=== PATIENT | male | born 1985 | race Caucasian/White ===

== ENCOUNTER → 2020-01-05 14:26 | Outpatient (BNVA) | payer OTHER, SELFPAY | PROVIDERS: Visit Provider Internal Medicine | DX: Z76.89 Persons encountering health services in other specified circumstances (principal) ==

== ENCOUNTER → 2020-01-11 13:54 | Outpatient (BNVA) | payer OTHER, SELFPAY | PROVIDERS: Visit Provider Internal Medicine | DX: Z76.89 Persons encountering health services in other specified circumstances (principal) ==

== ENCOUNTER → 2020-01-18 13:41 | Outpatient (BNVA) | payer OTHER, SELFPAY | PROVIDERS: Visit Provider Internal Medicine | DX: Z76.89 Persons encountering health services in other specified circumstances (principal) ==

== ENCOUNTER → 2020-01-25 13:25 | Outpatient (BNVA) | payer OTHER, SELFPAY | PROVIDERS: Visit Provider Internal Medicine | DX: Z76.89 Persons encountering health services in other specified circumstances (principal) ==

== ENCOUNTER → 2020-02-01 14:11 | Outpatient (BNVA) | payer OTHER, SELFPAY | PROVIDERS: Visit Provider Internal Medicine | DX: Z76.89 Persons encountering health services in other specified circumstances (principal) ==

== ENCOUNTER → 2020-02-08 13:45 | Outpatient (BNVA) | payer OTHER, SELFPAY | PROVIDERS: Visit Provider Internal Medicine | DX: Z76.89 Persons encountering health services in other specified circumstances (principal) ==

== ENCOUNTER → 2020-02-15 13:42 | Outpatient (BNVA) | payer OTHER, SELFPAY | PROVIDERS: Visit Provider Internal Medicine | DX: Z76.89 Persons encountering health services in other specified circumstances (principal) ==

== ENCOUNTER → 2020-02-22 13:39 | Outpatient (BNVA) | payer OTHER, SELFPAY | PROVIDERS: Visit Provider Internal Medicine | DX: Z76.89 Persons encountering health services in other specified circumstances (principal) ==

== ENCOUNTER → 2020-03-07 13:44 | Outpatient (BNVA) | payer SELFPAY | PROVIDERS: Visit Provider Internal Medicine ==

== ENCOUNTER → 2020-03-21 13:41 | Outpatient (BNVA) | payer OTHER, SELFPAY | PROVIDERS: Visit Provider Internal Medicine ==

== ENCOUNTER → 2020-04-04 13:30 | Outpatient (BNVA) | payer OTHER, SELFPAY | PROVIDERS: Visit Provider Internal Medicine ==

== ENCOUNTER → 2020-04-18 13:28 | Outpatient (BNVA) | payer OTHER, SELFPAY | PROVIDERS: Visit Provider Internal Medicine ==

== ENCOUNTER → 2020-05-03 14:19 | Outpatient (BNVA) | payer OTHER, SELFPAY | PROVIDERS: Visit Provider Internal Medicine | DX: Z51.81 Encounter for therapeutic drug level monitoring (principal) | CPT/HCPCS: 80305 ==

== ENCOUNTER 2024-08-25 01:05 | Emergency (ER) | payer MEDICAID, SELFPAY ==
--- NOTE | 2024-08-25 | ECG_ITS ---
Test Reason : chest pain Blood Pressure : */* mmHG Vent. Rate : 72 BPM Atrial Rate : 72 BPM P-R Int : 168 ms QRS Dur : 90 ms QT Int : 426 ms P-R-T Axes : 33 5 27 degrees QTcB Int : 466 ms Normal sinus rhythm Normal ECG No previous ECGs available Referred By: Ciara Reyes Electronically Signed By: Surinder Chavez
--- NOTE | ~2024-08-25 | XR_ITS ---
CLINICAL HISTORY: chest pain 1 view chest x-ray Comparison: None provided Findings: Mild left retrocardiac atelectasis. No significant pleural effusion or pneumothorax. Heart size is normal. No acute fracture. IMPRESSION: Mild left retrocardiac atelectasis. This document has been electronically signed by: Frederic Jacob MD on 08/25/2024 02:00:25
--- NOTE | ~2024-08-25 | XR_ITS ---
EXAMINATION: XR CHEST 1 VIEW HISTORY: CP COMPARISON: There are no prior studies available for comparison. FINDINGS: A single PA view of the chest is submitted. The lungs are expanded and clear. There is no pleural effusion, pneumothorax, or pulmonary vascular congestion. The heart is normal in size. The bones are intact. XR/XR chest 1V IMPRESSION: Clear lungs. Electronically signed by: Toby Dyer MD 09/02/2024 09:35 AM EDT
[2024-08-25 01:33] VITALS: BP 155/108; PULSE 75; RESP 12; TEMP 36.8; O2SAT 96; BMI 28.1
--- NOTE | 2024-08-25 04:54 | ED_ITS ---
HPI - General Adult General Stated complaint: CP Time Seen by Provider: 08/25/24 01:11 Source: patient Mode of arrival: ambulatory Limitations: no limitations History of Present Illness ED Provider: Dr. Ciara Reyes HPI narrative: please see paper charts which were used during down time chief complaint, chest pain, feeling like he is withdrawing from alcohol. Last drink over 8 hours ago chest pain present for 2 weeks, sharp, substernal, no shortness of breath Related Data Previous Rx's ?Medication ?Instructions ?Recorded buprenorphine 8 mg-naloxone 2 mg 2 film sublingual SUNNY LY 21 days 05/03/20 sublingual film (Suboxone) #42 ea Allergies Allergy/AdvReac Type Severity Reaction Status Date / Time No Known Allergies Allergy Verified 02/01/20 14:12 Review of Systems Review of Systems: positive for chest pain, complaining of feeling like his withdrawing from alcohol PMFSH Past Medical History Medical History Opioid use disorder Alcohol abuse Physical Exam ED Const Other: Appearance: Alert. Oriented X3. No acute distress. seems uncomfortable, no tremor Eyes: Pupils equal, round and reactive to light. ENT: Pharynx normal. Neck: Normal inspection. Neck supple. No lymph nodes noted. No crepitus CVS: Normal heart rate and rhythm. Pulses normal. Normal S1 and S2 Respiratory: No respiratory distress. Breath sounds normal. No Wheezing. No rales Abdomen: Soft and nontender. No rigidity. No distention. Skin: Skin warm and dry. Normal skin color. Normal skin turgor. Extremities: No lower extremity edema. No Lacerations. No Rash Neuro: Oriented X 3. No motor deficit. No sensory deficit. Moving all extremities. No slurred speech. CN 2 through 12 grossly intact Psych: calm, cooperative, normal affect Course Course Course Narrative: complaining of chest pain for 2 weeks, chest x-ray and labs pending complaining of withdrawing from alcohol. Patient's vitals are normal, no tremor, Medical Decision Making Medical Decision Making MDM Narrative: see paper chart for labs overall, patient does feel better after Ativan. Patient states that he is on a waiting list in [place]. Patient states that he does not want to go to [facility] or any local detox facilities here. Patient states that he would prefer to be called back from [place]. Patient requesting a prescription for Librium Differential Diagnosis Differential Diagnoses: The differential diagnosis associated with the presentation includes ( alcohol withdrawal, opiate withdrawal, pleurisy, costochondritis) Admission/Observation Consideration of admission/observation: Escalation of care including admission/observation considered Scores Heart Score History: -0- slightly suspicious ECG: -0- normal Age: -0- < or = 45 Risk factory: -0- no risk factors known Troponin: -0- < or = normal limit Score: 0 Risk: 1.7% Critical Care Time Critical Care Time Critical Care Time: Yes Total Critical Care Time: 45 Attestation: Please follow-up with your primary care physician tomorrow. If you have any worsening or new symptoms, please return to the emergency room or call 911 Discharge Plan Discharge Clinical Impression: Atypical chest pain, Alcohol withdrawal Patient Disposition: Home, Self-Care Instructions: Abuse of Alcohol (DC), Chest Pain (ED) Additional Instructions: Please follow-up with your primary care physician tomorrow. If you have any worsening or new symptoms, please return to the emergency room or call 911 Prescriptions: No Action buprenorphine-naloxone [Suboxone] 8-2 mg film 2 film sublingual DAILY 21 Days Qty: 42 0RF Rx Instructions: place 1 strip/tab under (each) side of tongue Print Language: Ukrainian
[2024-08-25 04:59] VITALS: BP 149/99; PULSE 86; RESP 14; TEMP 36.8; O2SAT 98
[2024-08-25 05:19] VITALS: BP 149/99; PULSE 86; RESP 14; TEMP 36.8; O2SAT 98
[2024-08-25 05:50] LABS: Hematocrit 38.9 % (42.0-52.0); Hemoglobin 13.4 g/dl (14.0-18.0); Imm Gran Abs Auto 0.01 X10*3/uL (0.00-0.03); Imm Gran Pct Auto 0.2 % (0.0-0.4); Lymphocytes Absolute Auto 2.6 X10*3/uL (1.2-4.9); MANUAL DIFF FLAG SCAN; Mean Corpuscular HGB Conc 34.4 g/dl (31.0-36.0); Mean Corpuscular Hemoglobin 32.5 pg (27.0-33.0); Mean Corpuscular Volume 94.4 fL (80.0-98.0); NRBC Abs Auto 0.000 X10*3/uL (0.0-0.012); NRBC Pct Auto 0.0 /100WBC (0.0-0.2); Platelet Count 250 X10*3/uL (160-400); Red Blood Count 4.12 X10*6/uL (4.60-5.80); SCAN SMEAR FLAG 1; White Blood Count 4.1 X10*3/uL (4.8-10.8)
[2024-08-25 06:13] LABS: Alanine Aminotransferase 68 U/L (0-40); Albumin Level 4.3 g/dL (3.5-5.0); Alkaline Phosphatase 98 U/L (39-117); Anion Gap 15 (12-20); Aspartate Amino Transferase 73 U/L (5-37); Blood Urea Nitrogen 7 mg/dL (9-16); Calcium 8.6 mg/dL (8.4-10.2); Carbon Dioxide 25 mmol/L (22-29); Chloride 105 mmol/L (96-108); Creatinine Clr Calc Pharmacy 130.8; Estimated Glomerular Filt Rate > 60; Potassium 3.8 mmol/L (3.3-5.1); Sodium 141 mmol/L (135-145); Total Protein 7.1 g/dL (6.5-8.0)
[2024-08-25 06:15] LABS: Troponin-I High Sensitivity < 2.7 ng/L (<3.5-35.0)
[2024-08-25 06:43] LABS: Magnesium 2.1 mg/dL (1.6-2.6)
[2024-08-25 06:45] LABS: Cannabinoid Screen Urine Not Detected (Not Detect)
[2024-08-25 06:48] LABS: B Type Natriuretic Peptide 40 pg/mL (<100)
== END 2024-08-25 05:19 | disposition home or self-care (01) ==
PROVIDERS: Emergency Provider Emergency Medicine
DX: R07.9 Chest pain, unspecified (principal); F10.239 Alcohol dependence with withdrawal, unspecified
CPT/HCPCS: 36415; 71045; 80048; 80076; 80307; 83735; 83880; 84484; 85025; 93005; 99284; 99291

== ENCOUNTER → 2024-08-25 01:10 | Outpatient (BNV) | payer MEDICAID, SELFPAY | PROVIDERS: Emergency Provider Emergency Medicine; PCP Dentist General Practice; Visit Provider Radiology Diagnostic Radiology | DX: R07.9 Chest pain, unspecified (principal) | CPT/HCPCS: 71045 ==

== ENCOUNTER → 2024-08-25 01:10 | Outpatient (BNV) | payer MEDICAID, SELFPAY | PROVIDERS: Emergency Provider Emergency Medicine; PCP Dentist General Practice; Visit Provider Internal Medicine Cardiovascular Disease | DX: R07.2 Precordial pain (principal) | CPT/HCPCS: 93010 ==

== ENCOUNTER 2024-08-31 21:46 | Emergency (ER) | payer MEDICAID, SELFPAY ==
[2024-08-31 22:10] VITALS: BP 150/98; PULSE 98; RESP 16; TEMP 36.8; O2SAT 98; BMI 28.7
--- NOTE | 2024-08-31 22:20 | ECG_ITS ---
Test Reason : ETOH Blood Pressure : */* mmHG Vent. Rate : 87 BPM Atrial Rate : 87 BPM P-R Int : 168 ms QRS Dur : 98 ms QT Int : 388 ms P-R-T Axes : 47 19 47 degrees QTcB Int : 466 ms Normal sinus rhythm Normal ECG When compared with ECG of 25-Aug-2024 01:10, No significant change was found Referred By: Generic ED Physician Electronically Signed By: AISHA VILLARREAL
[2024-08-31 22:43] LABS: Hematocrit 34.2 % (42.0-52.0); Hemoglobin 12.3 g/dl (14.0-18.0); Mean Corpuscular HGB Conc 36.0 g/dl (31.0-36.0); Mean Corpuscular Hemoglobin 32.9 pg (27.0-33.0); Mean Corpuscular Volume 91.4 fL (80.0-98.0); NRBC Abs Auto 0.000 X10*3/uL (0.0-0.012); NRBC Pct Auto 0.0 /100WBC (0.0-0.2); Platelet Count 274 X10*3/uL (160-400); Red Blood Count 3.74 X10*6/uL (4.60-5.80); White Blood Count 6.0 X10*3/uL (4.8-10.8)
[2024-08-31 23:02] LABS: Salicylate < 5.0 mg/dL (15-30)
[2024-08-31 23:03] LABS: Alanine Aminotransferase 88 U/L (0-40); Albumin Level 4.3 g/dL (3.5-5.0); Alkaline Phosphatase 109 U/L (39-117); Anion Gap 12 (12-20); Aspartate Amino Transferase 169 U/L (5-37); Blood Urea Nitrogen 5 mg/dL (9-16); Calcium 8.5 mg/dL (8.4-10.2); Carbon Dioxide 22 mmol/L (22-29); Chloride 106 mmol/L (96-108); Creatinine Clr Calc Pharmacy 151.9; Estimated Glomerular Filt Rate > 60; Magnesium 2.0 mg/dL (1.6-2.6); Potassium 3.3 mmol/L (3.3-5.1); Sodium 137 mmol/L (135-145); Total Protein 7.2 g/dL (6.5-8.0)
[2024-08-31 23:37] LABS: Appearance Urine Clear; Glucose Urine UA Negative (Negative); PH 6.0 (5.0-9.0); Specific Gravity - Urine <= 1.005 (1.005-1.025)
[2024-08-31 23:45] LABS: Cannabinoid Screen Urine Not Detected (Not Detect)
--- NOTE | 2024-09-01 03:52 | ED.ALCOHOL ---
HPI - Alcohol General Chief Complaint: ETOH/Substance Use Stated Complaint: alcohol withdrawal Time Seen by Provider: 09/01/24 02:54 Source: patient Mode of arrival: ambulatory Limitations: no limitations History of Present Illness ED Provider: Dr. Ciara Reyes HPI narrative: Patient comes to the emergency room complaining of alcohol intoxication/withdrawal? Patient states that he drank earlier this evening. Patient states that the last time that I saw him here in the emergency room, he took his leave him and he stopped drinking for as long as the prescription lasted. Patient states that after that, he started drinking alcohol again. Patient states that he is not interested in detox. Patient states that he has tried 7 times and does not work. Earlier today in triage she said that he was interested in detox by the exception of [place]. However, patient states that he is not ready to go back to detox. Patient denies SI or HI , the patient denies polysubstance use Related Data Previous Rx's ?Medication ?Instructions ?Recorded buprenorphine 8 mg-naloxone 2 mg 2 film sublingual DAILY 21 days 05/03/20 sublingual film (Suboxone) #42 ea chlordiazepoxide HCl 25 mg capsule 25 mg PO QID PRN alcohol 08/25/24 withdrawal #16 caps chlordiazepoxide HCl 25 mg capsule 25 mg PO TID PRN alcohol 09/01/24 withdrawal #12 caps Allergies Allergy/AdvReac Type Severity Reaction Status Date / Time No Known Allergies Allergy Verified 08/31/24 22:17 Review of Systems Review of Systems: Constitutional : No Weight loss, No Fever, No Chills, No Night Sweats, No Fatigue, No Malaise ENT/Mouth : No Hearing loss, No Ear Pain, No Nasal Congestion, No Sinus Pain, No Hoarseness, No sore throat, No Rhinorrhea, No Swallowing Difficulty Eyes: No Eye Pain, No Swelling, No Redness, No Foreign Body, No Discharge, No Vision Changes Cardiovascular : No Chest Pain, No SOB, No Dyspnea on Exertion, No Orthopnea, No Edema, No Palpitations Respiratory : No Cough, No Sputum, No Wheezing, No Smoke Exposure, No Dyspnea Gastrointestinal : No Nausea, No Vomiting, No Diarrhea, No Constipation, No abdominal Pain, No Hematochezia, No Melena Genitourinary : no irregular bleeding, No Dysuria, No Urinary Frequency, No Hematuria, No Urinary Incontinence, No Urgency, No Flank Pain, No Urinary Flow Changes, No Hesitancy Musculoskeletal : No joint pain, No Myalgias, No Joint Swelling Skin : No Skin Lesions, No rash Neuro : No Weakness, No Numbness, No Paresthesias, No Loss of Consciousness, No Dizziness, No Headache Psych : No Anxiety/Panic, No Depression, No SI/HI/AH/VH, admits to alcohol abuse and dependence Heme/Lymph: No Bruising, No Bleeding,No Lymphadenopathy Endocrine : No Polyuria, No Polydipsia, No Temperature Intolerance [facility] Past Medical History Medical History Opioid use disorder Alcohol abuse Social History Social History Alcohol intake: current Alcohol intake frequency: 3 or more drinks per day Alcohol type: beer Substance Use Type: Former Substance User Advance Directives: No Advance Directives Information Provided: No Do you have a plan to hurt others: No Plan Physical Exam ED Vital Signs: Vital Signs - 24 hr 08/31/24 22:10 Temperature 98.3 F Pulse Rate 98 Respiratory Rate 16 Blood Pressure 150/98 H Pulse Oximetry 98 Oxygen Delivery Method Room Air BMI result Body Mass Index 28.7 Const Other: Appearance: Alert. Oriented X3. No acute distress. Eyes: Pupils equal, round and reactive to light. ENT: Pharynx normal. Neck: Normal inspection. Neck supple. No lymph nodes noted. No crepitus CVS: Normal heart rate and rhythm. Pulses normal. Normal S1 and S2 Respiratory: No respiratory distress. Breath sounds normal. No Wheezing. No rales Abdomen: Soft and nontender. No rigidity. No distention. Skin: Skin warm and dry. Normal skin color. Normal skin turgor. Extremities: No lower extremity edema. No Lacerations. No Rash Neuro: Oriented X 3. No motor deficit. No sensory deficit. Moving all extremities. No slurred speech. CN 2 through 12 grossly intact Psych: calm, cooperative, normal affect Course Course Course Narrative: Patient complaining of alcohol intoxication and feeling like he is withdrawing. Patient drank alcohol prior to arrival here in the emergency room. Patient states that Librium really help him to stop drinking. Medical Decision Making Medical Decision Making [facility] Narrative: My interpretation of labs: No acute abnormality in patient's hematology and chemistry, patient's LFTs elevated in an ETOH abuse pattern. Chronic, urinalysis negative for UTI, urine toxicology positive for buprenorphine, benzodiazepines and barbiturates I discussed with the patient that the last time that he was here, we did give him a script. However, we can not keep repeating this over and over again, giving him a script for a few days and then him going back to drinking and and then back in the hospital. Patient states that he has needs 1 more script to get his thoughts together and he will get himself to detox. Declined assistance with detox at this time. Patient denies SI or HI. Patient is alert and oriented x3, clinically sober, stable vitals Differential Diagnosis Differential Diagnoses: The differential diagnosis associated with the presentation includes (Alcohol intoxication, alcohol dependence) Admission/Observation Consideration of admission/observation: Escalation of care including admission/observation considered (Care team consult/motor coach operator/[facility] was offered. Patient declined) Lab Data MDM Lab Attestation statement: I reviewed the patient's lab results. 08/31/24 22:36 08/31/24 22:36 Labs: Lab Results 08/31/24 08/31/24 Range/Units 22:36 23:30 WBC 6.0 (4.8-10.8) X10*3/uL RBC 3.74 L (4.60-5.80) X10*6/uL Hgb 12.3 L (14.0-18.0) g/dl Hct 34.2 L (42.0-52.0) % MCV 91.4 (80.0-98.0) fL MCH 32.9 (27.0-33.0) pg MCHC 36.0 (31.0-36.0) g/dl RDW 13.4 (11.0-16.0) % Plt Count 274 (160-400) X10*3/uL MPV 9.9 (9.4-12.4) fL Absolute Nucleated RBC 0.000 (0.0-0.012) X10*3/uL Nucleated RBC % (auto) 0.0 (0.0-0.2) /100WBC Sodium 137 (135-145) mmol/L Potassium 3.3 (3.3-5.1) mmol/L Chloride 106 (96-108) mmol/L Carbon Dioxide 22 (22-29) mmol/L Anion Gap 12 (12-20) BUN 5 L (9-16) mg/dL Creatinine 0.80 (0.5-1.4) mg/dL Estim Creat Clear Calc 151.9 Estimated GFR > 60 Random Glucose 91 (60-115) mg/dL Calcium 8.5 (8.4-10.2) mg/dL Magnesium 2.0 (1.6-2.6) mg/dL Total Bilirubin 0.4 (0.0-1.0) mg/dL AST 169 H (5-37) U/L ALT 88 H (0-40) U/L Alkaline Phosphatase 109 (39-117) U/L Total Protein 7.2 (6.5-8.0) g/dL Albumin 4.3 (3.5-5.0) g/dL Urine Color Yellow Urine Appearance Clear Urine pH 6.0 (5.0-9.0) Ur Specific [place] <= 1.005 (1.005-1.025) Urine Protein Negative (Neg-Trace) mg/dL Urine Glucose (UA) Negative (Negative) mg/dL Urine Ketones Negative (Negative) mg/dL Urine Blood Negative (Negative) Urine Nitrite Negative (Negative) Ur Leukocyte Esterase Negative (Negative) Salicylates < 5.0 L (15-30) mg/dL Urine Opiates Screen Not Detected (Not Detect) Ur Buprenorphine Scrn Positive H (Not Detect) ng/mL Ur Oxycodone Screen Not Detected (Not Detect) ng/mL Urine Methadone Screen Not Detected (Not Detect) ng/mL Urine Fentanyl Screen Not Detected (Not Detect) Ur Barbiturates Screen POSITIVE H (Not Detect) Ur Phencyclidine Scrn Not Detected (Not Detect) Ur Amphetamines Screen Not Detected (Not Detect) U Benzodiazepines Scrn POSITIVE H (Not Detect) Urine Cocaine Screen Not Detected (Not Detect) U Marijuana (THC) Screen Not Detected (Not Detect) Ethyl Alcohol 191 mg/dL Discharge Plan Discharge Clinical Impression: Alcoholic intoxication, Alcohol dependence Patient Disposition: Home, Self-Care Instructions: Alcohol Use Disorder (ED) Additional Instructions: Please follow-up with your primary care physician tomorrow. If you have any worsening or new symptoms, please return to the emergency room or call 911 Prescriptions: New chlordiazepoxide HCl 25 mg capsule 25 mg PO TID PRN (Reason: alcohol withdrawal) Qty: 12 0RF No Action buprenorphine-naloxone [Suboxone] 8-2 mg film 2 film sublingual DAILY 21 Days Qty: 42 0RF Rx Instructions: place 1 strip/tab under (each) side of tongue chlordiazepoxide HCl 25 mg capsule 25 mg PO QID PRN (Reason: alcohol withdrawal) Qty: 16 0RF Print Language: Egyptian
[2024-09-01 04:30] VITALS: BP 147/107; PULSE 80; RESP 16; TEMP 37.1; O2SAT 98
--- NOTE | 2024-09-01 04:48 | PC.NURSE ---
Pt is aox4, no apparent distress noted. Ambulatory with steady gait. Pt hypertensive with BP 144/100. Pt states having a history of hypertension and does not like to take any medications for this condition. MD made aware and ok for pt to be discharged.
[2024-09-01 05:07] VITALS: BP 144/100; PULSE 80; RESP 16; TEMP 37.1; O2SAT 98
== END 2024-09-01 05:08 | disposition home or self-care (01) ==
PROVIDERS: Emergency Provider Emergency Medicine; PCP Dentist General Practice
DX: F10.129 Alcohol abuse with intoxication, unspecified (principal); Y90.6 Blood alcohol level of 120-199 mg/100 ml; Z51.81 Encounter for therapeutic drug level monitoring; Z79.899 Other long term (current) drug therapy
CPT/HCPCS: 36415; 80053; 80179; 80307; 81003; 83735; 85027; 93005; 99285

== ENCOUNTER → 2024-08-31 22:20 | Outpatient (BNV) | payer MEDICAID, SELFPAY | PROVIDERS: Emergency Provider Emergency Medicine; PCP Dentist General Practice; Visit Provider Internal Medicine | DX: F10.90 Alcohol use, unspecified, uncomplicated (principal) | CPT/HCPCS: 93010 ==